=== PATIENT | female | born 1985 | race Two or more races ===

== ENCOUNTER 2024-08-17 06:10 | Emergency (ER) | payer BC, SELFPAY ==
[2024-08-17 06:12] VITALS: BP 132/63
--- NOTE | 2024-08-17 06:44 | ED.GENMED ---
History of Present Illness
General
Chief Complaint: Musculo-Skeletal Complaint
Source: patient
Exam Limitations: none
Time Seen by Provider: 08/17/24 06:32
Nursing documentation reviewed up to this point in time: agreed with
History of Present Illness
History of Present Illness:
39-year-old female presents to the ER complaining of left-sided upper back/neck discomfort radiating to her left shoulder with movement. 2 nights ago she noticed this while sleeping and woke up yesterday morning with discomfort. Pain is in the
left posterior upper trapezius region which feels worse when she moves her neck or lifts her arm up.
She denies any trauma. She does however states she does a lot of time sitting in front of the computer with work and also has a 3-year-old daughter which she lifts a lot. Denies any numbness , tingling, weakness upper extremities. Denies any
recent fever chills chest pain shortness of breath. She has been taking Tylenol but nothing else. LMP 07/30
Review of Systems
Review of Systems
Allergies reviewed?: Yes
All Other Systems: ROS reviewed and negative except as documented in HPI and ROS
Constitutional: Reports no symptoms
Respiratory: Reports no symptoms
Cardiac: Reports no symptoms
ABD/GI: Reports no symptoms
Musculoskeletal: Reports neck pain and back pain (left upper back/left sided neck discomfort )
Skin: Reports no symptoms
Neurological: Reports no symptoms; Denies numbness
Psychiatric: Reports no symptoms
Phy Exam
General Physical Exam
General Presentation: no apparent distress
General age: appears stated age
General Skin: warm and dry
General Habitus: normal
General Mental: alert
General Hydration: appears well hydrated
Cardiovascular Exam
Cardiovascular Exam: regular rate/rhythm, no murmur and normal peripheral pulses
Pulmonary Exam
Pulmonary Exam: lungs clear and no respiratory distress
Neurological Exam
Neurological Exam: alert, oriented x3, no motor deficits, no sensory deficits and other (Normal sensation to the left upper extremity with normal trans router)
Musculoskeletal Exam
Musculoskeletal Exam: other (normal inspection to left back and neck tender to left upper trapezius and left para cervical muscle region, normal range of motion to left arm however+ discomfort left upper trapezius with full range of motion to the
left arm; strong distal pulses)
Skin Exam
Skin Exam: normal color and warm/dry
Psychiatric Exam
Psychiatric Exam: normal mood/affect
Course
Vital Signs
Initial and Last Documented VS:
Initial Vital Signs
Temp Pulse Resp BP Pulse Ox
97.6 F 76 18 132/63 100
08/17/24 06:12 08/17/24 06:12 08/17/24 06:12 08/17/24 06:12 08/17/24 06:12
Last Documented Vital Signs
Temp Pulse Resp BP Pulse Ox
97.6 F 76 18 132/63 100
08/17/24 06:12 08/17/24 06:12 08/17/24 06:12 08/17/24 06:12 08/17/24 06:12
MDM/Problems Addressed
Differential Diagnosis Includes:
Not limited to muscle pain muscle strain
MDM/Problems Addressed:
Symptoms are consistent with muscular pain. Patient is in no acute distress no neurological deficits. Symptoms are worse with movement tender to left upper trapezius. She has only taken Tylenol. Will DC with ibuprofen muscle relaxer lidocaine
patch or close outpatient follow-up family doctor. Discussed ice heat and avoid lifting she will not work today to give herself a break off the computer. Discussed to return if any worsening of symptoms.
*Critical Care Note
Total Time (30-74mins, 75-104mins- exclusive of procedures): Not Applicable
ED Attending Note
-
Portions of this chart may have been created with voice recognition software.� Occasional wrong word or��sound alike� substitutions may have occurred due to the inherent limitations of voice recognition software.
Discharge Plan
Departure
Patient Disposition: Home (Routine Discharge)
Date of Disposition: 08/17/24
Time of Disposition: 06:55
Patient with high blood pressure during this ER visit?: Yes
Condition: Fair
Covid-19: Not Applicable
Discharge Problem:
Muscle pain
Instructions: Muscle and Bone Pain (DC), Ibuprofen, BLOOD PRESSURE
Prescriptions:
New
cyclobenzaprine 10 mg tablet
10 mg PO Q8H PRN (Reason: muscle spasm) Qty: 10 0RF
lidocaine 5 % adhesive patch,medicated
1 patch topical DAILY PRN (Reason: pain) Qty: 15 0RF
Rx Instructions:
remove after 12 hrs
Activity Restrictions/Additional Instructions:
As discussed apply warm moist heat to affected area several times a day for 20 minutes at a time for the next 24 to 48 hours. Ibuprofen 400 to 600 mg every 8 hours with food
In in addition you may take Tylenol as well every 6 hours.
A prescription for Flexeril (muscle relaxer) was sent to pharmacy take as directed. This medication may cause drowsiness no driving or drinking alcohol taking medicine.
In addition a prescription for lidocaine patches was sent to your pharmacy as well use as directed. Follow-up with family doctor in the next several days return if any worsening of symptoms.
Avoid lifting, avoid sitting at the computer for prolonged periods at a time.
Interventions
Interventions:
*Risk Screen - Suicide Last Done: 08/17/24 06:12
Discharge Date and Time
Print Language: SPANISH
[2024-08-17] MEDS: MOTRIN 600 MG PO (07:00)
[2024-08-17] MEDS: VALIUM INJECTION 5 MG IM (07:01)
[2024-08-17] MEDS: LIDOCAINE 4% PATCH 1 PATCH TOPICAL (07:01)
== END 2024-08-17 07:21 | disposition home or self-care (01) ==
LOC: EMR 06:10
PROVIDERS: EMERGENCY PHYSICIAN Emergency Medicine; FAMILY PHYSICIAN Physician Assistant
DX: M79.18 Myalgia, other site (principal)
CPT/HCPCS: 96372; 99284

== ENCOUNTER 2024-08-20 18:14 | Inpatient (IN) | payer BC, SELFPAY ==
[2024-08-20 11:58] VITALS: BP 126/83
--- NOTE | 2024-08-20 15:17 | ED.GENMED ---
History of Present Illness
General
Chief Complaint: Musculo-Skeletal Complaint
Source: patient
Exam Limitations: none
Time Seen by Provider: 08/20/24 14:56
History of Present Illness
History of Present Illness:
39yo right hand dominant female with a history of ALYSIA on CPAP presenting for evaluation of neck discomfort. Symptoms initially began 5 days ago. She reports feeling a twinge in the left side of her neck in the middle of the night and woke up the
following day with pain. She denies any trauma or inciting incident. The pain was worsening over a few days and she was seen in the ED 3 days ago. She was diagnosed with a muscle strain and was given a prescription for Flexeril and lidocaine
patches. She continued to have discomfort so was seen by her PCP yesterday and was given a prescription for prednisone and oxycodone. The pain has gotten better after starting these medications. She is now having weakness of her left arm and is
having issues today particularly with left shoulder abduction. She denies any paresthesias.
Phy Exam
General Physical Exam
General Presentation: well appearing and no apparent distress
General Skin: warm and dry
General Habitus: normal
General Mental: alert
ENT Exam
ENT Exam: normocephalic
Pulmonary Exam
Pulmonary Exam: no respiratory distress
Neurological Exam
Neurological Exam: alert and other (Weakness noted with L shoulder abduction. Patient uses her R arm to lift the arm and is able to hold against gravity for a few seconds. Elbow and wrist flexion normal. 2+ radial pulse and sensation intact.)
[place] Coma Scale
Eye Opening: Spontaneous
Verbal Response: Oriented
Motor Response: Obeys Commands
GCS Total Score: 15
Musculoskeletal Exam
Musculoskeletal Exam: other (No tenderness to palpation of the L shoulder)
Skin Exam
Skin Exam: normal color and warm/dry
Psychiatric Exam
Psychiatric Exam: normal mood/affect
Course
Orders/Labs/Results
Orders:
Orders
08/20/24 Breakfast
Regular
At Your Request: Full Participation
08/20/24 15:16
CT Cervical Spine W/o Iv Contr Urgent
Comment:
Reason For Exam: L neck pain, L arm weakness
CR Humerus - Left Min 2 Views* Urgent
Comment:
Reason For Exam: pain
CR Shoulder - Left Min 2 View* Urgent
Comment:
Reason For Exam: pain
08/20/24 17:02
Dexamethasone Sod Phosphate [Decadron] 10 mg IV NOW STA
Test Result ONCE
08/20/24 17:33
Admit/Transfer Patient As Directed
Co-Sign Provider:
Level of Care: Inpatient admission
Assign to:: Medical/Surgical
Physician / Group: [email or web address]
Diagnosis: left disc protrustion
Reason for Hospitalization: left disc protrusion
Expected length of stay greater than two midnights?: Yes
ELOS- Estimated Length of Stay in days: 3
I certify the patient meets the requirements for IP care: Yes
PRN Pain Medication Management As Directed
May give lesser potent ordered pain med per pt: Yes
preference::
Protocol:: Medication orders for pain may be administered in a
manner that supports deferring to patient preference
when the pt is:
- Requesting an ordered lesser potent pain medication.
Least to most potent pain medications are defined
as: acetaminophen < NSAID < tramadol < opioids
(morphine, oxycodone, hydromorphone).
- Requesting a lesser dose of the same medication IF
ORDERED.
- Requesting a less intrusive route of administration
if both routes are prescribed by the provider (PO <
IV).
08/20/24 17:34
Code Status As Directed
Resuscitation Status: Full Code
08/20/24 17:41
Complete Blood Count/With Diff Urgent
Comprehensive Metabolic Panel Urgent
HCG, Serum Qualitative Screen Urgent
08/20/24 19:38
Acetaminophen [Tylenol] 650 mg PO Q4HPRN PRN
Bisacodyl [Dulcolax] 10 mg RECTAL C98HVDC PRN
Docusate W/Senna [Senokot-S] 1 tablet PO BIDPRN PRN
Enoxaparin Sodium [Lovenox] 40 mg SC QPM
Oxycodone/Acetaminophen [Percocet 5/325] 1 tablet PO Q4HPRN PRN SEVERE PAIN
Polyethylene Glycol Powder [Miralax] 17 grams PO DAILYPRN PRN
08/20/24 19:38
Neurosurgery Consult Routine
Consulting Provider: Mey Rodríguez
Was physician already notified: Yes
Activity As Directed
Activity Level: As Tolerated
Vital Signs As Directed
Frequency: Per unit guidelines
Cpap [RESP] Routine
Patient to use own unit?: Yes
DX Deep Vein Thrombosis Video Routine
08/21/24 06:00
Dexamethasone Sod Phosphate [Decadron] 4 mg IV Q12H
Abnormal Lab Results
08/20/24
17:41
WBC 15.4 H 10^3/uL
(4.8-10.8)
Abs Immat Gran (auto) 0.1 H 10^3/uL
(0-0.05)
Absolute Neuts (auto) 13.3 H 10^3/uL
(1.4-6.5)
Neutrophils % 86.4 H %
(42.2-75.2)
Lymphocytes % 10.5 L %
(20.5-51.1)
Glucose 140 H mg/dl
(70-99)
08/20/24 17:41
08/20/24 17:41
Vital Signs
Initial and Last Documented VS:
Initial Vital Signs
Temp Pulse Resp BP Pulse Ox
97.7 F 100 16 126/83 99
08/20/24 11:58 08/20/24 11:58 08/20/24 11:58 08/20/24 11:58 08/20/24 11:58
Last Documented Vital Signs
Temp Pulse Resp BP Pulse Ox
97.7 F 83 18 104/65 99
08/20/24 11:58 08/20/24 19:57 08/20/24 19:57 08/20/24 19:57 08/20/24 19:57
MDM/Problems Addressed
Differential Diagnosis Includes:
39yoF here with L arm weakness. Started with L neck/shoulder pain x 4-5 days. Seen in ED 3 days ago and diagnosed with a muscle strain. Started with L arm weakness today. VSS. She is well appearing in no distress. Weakness with shoulder abduction
noted on exam. No sensory deficit appreciated and 2+ radial pulse in L arm. Differential diagnosis includes but is not limited to: herniated disc/radiculopathy, calcific tendonitis, muscle strain, doubt fracture
Initial ED plan: Check CT cervical spine and L shoulder/humerus x-rays.
*Critical Care Note
Total Time (30-74mins, 75-104mins- exclusive of procedures): Not Applicable
Update Note
Update Note:
Shoulder and humerus x-rays are normal. CT shows a large left posterior disc protrusion at C4-C5 with suspected impingement upon the C5 nerve root. Case discussed with neurosurgeon on-call who recommended MRI cervical spine and IV Decadron.
Patient may need surgery depending on MRI results. Patient admitted for further management.
ED Attending Note
-
Portions of this chart may have been created with voice recognition software.� Occasional wrong word or��sound alike� substitutions may have occurred due to the inherent limitations of voice recognition software.
Discharge Plan
Departure
Patient Disposition: Admit
Date of Disposition: 08/20/24
Time of Disposition: 17:14
Presentation/result/management discussed w/ accepting MD/DO: Hospitalist
Discharge Problem:
Cervical disc herniation, Left arm weakness
Interventions
Interventions:
*Risk Screen - Suicide Last Done: 08/20/24 11:58
*Neglect/Abuse Screening Last Done: 08/20/24 11:58
*ED COVID-19 Vaccine History Last Done: 08/20/24 20:09
*Nursing Disposition Last Done: 08/20/24 19:45
ED-Musculoskeletal Assessment Last Done: 08/20/24 16:00
Discharge Date and Time
Discharge Date/Time: 08/20/24 20:28
--- NOTE | 2024-08-20 17:19 | HPS.HSE ---
Family Physician
-
Family Physician: INTERVIEWE UNKNOWN - PT NOT
Chief Complaint
-
neck discomfort and left arm weakness.
History of Present Illness
39yo right hand dominant female with a history of ALYSIA on CPAP presenting for evaluation of neck discomfort.patient woke up with neck pain on Friday night. Friday she started having left arm pain. she started taking prednisone since yesterday.
pain is better but she was not able to abduct or lift her left arm today. she was seen in the ED 3 days ago. She was diagnosed with a muscle strain and was given a prescription for Flexeril and lidocaine patches. She denies any paresthesias.
denied any trauma. denied PAULSON, dizzy or syncope.denied fever, chills, chest pain, sob. denied abdominal pain,n,v,d. denied dysuria or hematuria.
CT with admission Large left posterior disc protrusion at C4-C5 with suspected impingement upon the C5 nerve root within the limitations of CT.
Patient is needed also Decadron in the ER. Admitting for further management
Medical History
Past Medical History
Past Medical History: Reports None
Additional Past Medical History:
Sleep apnea
Past Surgical History: Reports Other
Additional Past Surgical History:
Hysterectomy
Social History
Tobacco: Non-smoker
Alcohol: Occasional
Drug: None
Personal:
Living: With Family
Family History
Family History: Not pertinent
Allergies / Home Medications
Allergies reflects when Allergies were last updated in [facility].
Home Medications with original date entered in [facility]
Allergy/Medication List:
Allergies
Allergy/AdvReac Type Severity Reaction Status Date / Time
No Known Allergies Allergy Verified 08/20/24 11:57
Home Medications
ibuprofen 200 mg tablet (Advil) 400 mg PO Q8HPRN PRN MILD PAIN 08/20/24
oxycodone-acetaminophen 5 mg-325 mg tablet 1 tab PO Q4HPRN PRN SEVERE PAIN 08/20/24
prednisone 10 mg tablet 10 mg PO DIRECTED 08/20/24
Review of Systems
-
Constitutional: Reports No Symptoms
EENT: Reports No Symptoms
Respiratory: Reports No Symptoms
Cardiac: Reports No Symptoms
Abdomen/GI: Reports No Symptoms
: Reports No Symptoms
Musculoskeletal: Reports Other (Left side of the neck and shoulder pain)
Skin: Reports No Symptoms
Neurological: Reports No Symptoms
Endocrine: Reports No Symptoms
Hematologic/Lymphatic: Reports No Symptoms
Psych: Reports No Symptoms
Physical Exam
Vital Signs
Vital Signs
Temp Pulse Resp BP Pulse Ox
97.7 F 100 16 126/83 99
08/20/24 11:58 08/20/24 11:58 08/20/24 11:58 08/20/24 11:58 08/20/24 11:58
Physical Exam
General: Well Developed, Well Nourished and No Apparent Distress
HEENT: NormoCephalic, Moist mucous membranes and Atraumatic
Respiratory: Clear
Cardiac: S1/S2 and Regular Rhythm; No Murmur or Rub
GI: Soft, Non Tender, Non Distended and Normal Bowel Sounds; No Organomegaly
Rectal: Deferred by Provider
Musculoskeletal: No Clubbing, No Cyanosis and No Edema
Skin: No Rash
Neuro: AO x 3 and Nonfocal/grossly intact
Psych: Calm
Data Reviewed
-
Diagnostic Radiology: Discussed with Physician
CT Scan: Report Reviewed by me
Lab Data: Labs Reviewed by me
Impression/Plan
-
# Left-sided neck pain associated with weakness with shoulder abduction secondary to large L disc protrusion at C4-C5 with suspected impingement upon C5 nerve root
- Will obtain MRI
- IV Decadron
- Neurosurgery consulted
- Shoulder x-ray with Normal radiographs of the left shoulder and the left humerus.
- Humerus x-ray with impression of normal
- Cervical spine spine CT with impression of Large left posterior disc protrusion at C4-C5 with suspected impingement upon the C5 nerve root within the limitations of CT.
#Obstructive sleep apnea
- CPAP
# DVT prophylaxis
- Lovenox
# CODE STATUS
- Full code
[2024-08-20 17:59] LABS: % Basophils 0.1 % (0-2); % Immature Granulocytes 0.5 % (0-0.5); % Lymphocytes 10.5 % (20.5-51.1); % Monocytes 2.5 % (1.7-9.3); % Neutrophils 86.4 % (42.2-75.2); Absolute Immature Granulocytes 0.1 10^3/uL (0-0.05); Absolute Lymphocytes 1.6 10^3/uL (1.2-3.4); Absolute Monocytes 0.4 10^3/uL (0.1-0.6); Absolute Neutrophils 13.3 10^3/uL (1.4-6.5); Hemoglobin 12.5 g/dL (12.0-16.0); Mean Corp Hgb Conc. 33.8 g/dL (33.0-37.0); Mean Corpuscular Hgb 27.6 pg (27.0-31.0); Mean Corpuscular Volume 81.7 fL (81.0-99.0); Mean Platelet Volume 9.3 fL (7.4-10.4); Nucleated Red Blood Cells % 0 %; Platelet Count 332 10^3/uL (130-400); Red Blood Cell Count 4.53 10^6/uL (4.20-5.40); Red Cell Dist. Width 12.2 % (11.5-14.5); White Blood Cell Count 15.4 10^3/uL (4.8-10.8)
[2024-08-20] MEDS: DECADRON 10 MG IV (18:03)
[2024-08-20 18:08] LABS: HCG, Serum Qualitative Screen Negative
[2024-08-20 18:12] LABS: ALT (SGPT) 15 U/L (0-35); AST (SGOT) 16 U/L (14-36); Albumin 4.7 g/dl (3.5-5.0); Alkaline Phosphatase 47 U/L (38-126); Blood Urea Nitrogen 17 mg/dl (7-17); Calcium 10.1 mg/dl (8.4-10.2); Carbon Dioxide 26 mmol/L (22-30); Chloride 107 mmol/L (98-107); Glucose 140 mg/dl (70-99); Potassium 4.4 mmol/L (3.5-5.1); Sodium 141 mmol/L (135-145); Total Bilirubin 0.2 mg/dl (0.2-1.3); Total Protein 8.2 g/dl (6.3-8.2); eGFR > 60.00
--- NOTE | 2024-08-20 18:29 | W.PN.UPDATE ---
Update Note
Progress Note Update
This note serves as an addendum to the H&P by slide maker WILLIE Valarie MATSON
HPI
39F No prior DH Visit , right hand dominant F history of ALYSIA on CPAP seen at ER:
- for evaluation of neck discomfort
- woke up with neck pain on Friday night.
- Friday she started having left arm pain.
- Prednisone since yesterday. pain is better but she was not able to abduct or lift her left arm today.
- seen in the ED 3 days ago: diagnosed with a muscle strain and gave prescription for Flexeril and lidocaine patches. - - denies any paresthesias.
- denied any trauma.
- denied PAULSON, dizzy or syncope
- denied dysuria or hematuria.
CT with admission Large left posterior disc protrusion at C4-C5 with suspected impingement upon the C5 nerve root within the limitations of CT.
- given IV Decadron in the ER.
Reviewed VS:
Vital Signs
Temp Pulse Resp BP Pulse Ox
97.7 F 100 16 126/83 99
08/20/24 11:58 08/20/24 11:58 08/20/24 11:58 08/20/24 11:58 08/20/24 11:58
PE
Gen: NAD
HEENT: atraumatic head
Neck: supple
Lungs: CTA
Cor: RRR S1 S2
Abdomen: Soft, Non Tender, Non Distended and Normal Bowel Sounds;
TOP TAPER MACHINE: AAO3
MS: weak Lt abductors of shoulder
Psych: Calm
Laboratory Tests
08/20/24
17:41
WBC 15.4 H
Creatinine 0.6
eGFR > 60.00
Shoulder and Humerus XR
- Normal radiographs of the left shoulder and the left humerus.
08/20/24 CT Cervical Spine W/o Iv Contrast
- Large left posterior disc protrusion at C4-C5 with suspected impingement upon the C5 nerve root within the limitations of CT.
NO PRIOR hospitalist admission:
ASSESSMENT & PLAN
Left-sided neck pain associated with weakness of Lt shoulder abduction due to impingement upon Lt C5 nerve root
- Associated with large L disc protrusion at C4-C5 with suspected impingement upon C5 nerve root
- Unremarkable Shoulder x-ray with Normal radiographs of the left shoulder and the left humerus.
- to obtain MRI
- IV Decadron
- Cont MOTOR TEACHER Percocet 1 tab q4h PRN
- Neurosurgery consulted
ALYSIA
- CPAP HS
DVT Px: LMWH
Full code
IP MS
[2024-08-20 19:57] VITALS: BP 104/65
[2024-08-20 20:00] VITALS: BP 117/77
--- NOTE | 2024-08-20 20:00 | PTCARENOTE ---
Patient arrived to 326 from ED via stretcher, ambulated from stretcher to bed independently without difficulty. Patient is still c/o neck pain, unchanged from admission, and left arm/hand numbness with difficulty lifting LUE. Patient is alert and
oriented, PRN pain medication available - patient denying at this time. Hx sleep apnea, respiratory therapist in room during admission to confirm -- patient will have bring her home machine for use while admitted. MRI ordered. Call hua in
reach, patient verbalizes understanding on use. Will monitor.
[2024-08-20 20:10] VITALS: BMI 27.6
[2024-08-20 23:00] VITALS: BP 127/76
[2024-08-21] MEDS: DECADRON 4 MG IV ×4 (06:05→23:49)
[2024-08-21 08:12] VITALS: BP 109/66
[2024-08-21] MEDS: LIDOCAINE 4% PATCH TOPICAL (09:56)
[2024-08-21] MEDS: PEPCID 20 MG PO ×2 (10:01→19:43)
--- NOTE | 2024-08-21 13:25 | W.PN.HOSP.TC ---
Today's Communication/Plan
-
Continue steroids
Ibuprofen and oxycodone as needed for pain control
Lidocaine patch
Physical therapy
Await neurosurgical input to see if surgical management would be required
Assessment / Plan
Assessment / Plan
Neck and left arm discomfort
MRI-C4-C5 large left posterior disc protrusion causing mild spinal canal stenosis with flattening of the left ventral aspect of the cervical spinal cord and severe left neuroforaminal stenosis impinging C5 nerve root
On examination patient is awake alert oriented
Pain in the cervical spine area
Weakness of the left arm not able to lift about shoulder level. Deltoid area weakness noted in the upper arm, full strength lower arm
Bilateral lower extremity normal strength
Cardiovascular system S1-S2 appreciated
Chest clear to auscultation
# Neck pain and arm pain
CT E-evoyr-vwrhe disc protrusion C4-C5 with suspected impingement on C5 nerve root, confirmed by CT
Continue IV Decadron
Pain control, lidocaine patch, oxycodone, Tylenol, Ibuprofen
Neurosurgery consultation requested to see if surgical management is needed.
# Leukocytosis likely secondary to steroids patient took it as outpatient
# Hyperglycemia likely secondary to steroids
# Sleep apnea-continue CPAP
# DVT prophylaxis-Lovenox
# Full code
Part of this note was created using voice recognition system. Occasional wrong word or��sound alike� substitutions may have inadvertently occurred due to the inherent limitations of voice recognition software. If noted kindly bring it to my
attention for correction.
Anticipated Discharge: Within 24 hours
Subjective/Interval History
-
Date of Service: August 21, 2024
Objective Data
-
Vital Signs:
Vital Signs
Temp Pulse Resp BP Pulse Ox
98.5 F 86 22 109/66 100
08/21/24 08:12 08/21/24 08:12 08/21/24 08:12 08/21/24 08:12 08/21/24 08:12
I&O
08/20/24 08/21/24 08/22/24
06:59 06:59 06:59
Intake Total
Balance
--- NOTE | 2024-08-21 14:45 | CON.NS ---
Addendum entered and electronically signed by Mey Rodríguez MD 08/22/24 15:26:
correction:
C4-5 Disc herniation.
Original Note:
Consultation
-
Date/Time Consultation Performed: 08/21/2024; 14:45
Performing Provider: Anne
Chief Complaint
History of Present Illness
This is a neurosurgical consultation on a 39-year-old female who presented with left arm weakness yesterday. She has active medical issues including obstructive sleep apnea, who presented with approximate 1 week history of neck pain. 3 days
thereafter, she started experiencing left upper extremity radicular pain. She started steroids, and reported that the pain was better, but had weakness of her left shoulder. She was seen in the ER 4 days prior, diagnosed with muscle strain. She
had a CT performed to the emergency room which revealed left L4-5 disc herniation. She subsequently underwent MRI scan. She was admitted for workup, pain control.
Patient seen and examined. Nurses at bedside. She reports that her pain is significantly improved, but she continues to have left shoulder. She denies any lower extremity. She denies any bowel bladder changes.
Review of Systems
-
10 point review of systems including constitutional, ENT, cardiovascular, respiratory, GI, , neurologic, musculoskeletal, endocrinologic, hematologic was performed, was negative except for as stated in HPI.
Medication and Allergies
Home Medications
Home Medications
�Medication �Instructions �Recorded
ibuprofen 200 mg tablet (Advil) 400 mg PO Q8HPRN PRN MILD PAIN 08/20/24
oxycodone-acetaminophen 5 mg-325 1 tab PO Q4HPRN PRN SEVERE PAIN 08/20/24
mg tablet
prednisone 10 mg tablet 10 mg PO DIRECTED 08/20/24
Allergies
Allergies
Allergy/AdvReac Type Severity Reaction Status Date / Time
No Known Allergies Allergy Verified 08/20/24 11:57
Physical Exam
-
Exam:
Awake, alert, no apparent distress. Family is at bedside.
Cranial nerves II through XII are grossly intact.
Motor: 5/5 strength in bilateral lower extremities. 5/5 strength in right upper extremity. 3/5 strength in left deltoid.
Sensation light touch is intact bilaterally in upper and lower extremities.
MRI of the cervical spine performed on 08/21/2024 was reviewed. Images were personally viewed and interpreted by me. There is a left-sided paracentral disc herniation causing impingement of the left L4-5 neuroforamen. No evidence of cord signal
changes seen. There is mild posterior displacement of the thecal sac on the left at this level.
Problems
-
Problem Status Onset Code
Left arm weakness Acute R29.898
Cervical disc herniation Acute M50.20
Assessment / Plan
-
Is a 39-year-old female who presents with C4-C5 disc herniation with left upper extremity radiculopathy.
Imaging demonstrates left C4-C5 neural impingement disc herniation. I discussed with the patient, and her family management options which include nonsurgical treatment via high-dose steroids, pain control physical therapy, possible epidural steroid
injection as outpatient versus surgical intervention by means of C4-5 ACDF.
Patient thinking over options, but is more interested in proceeding with likely nonoperative options at least short-term.
If so, I advised that she follow-up in the office with me approximately 2 to 3 weeks. Should her symptoms change or worsen, she is advised to follow-up with me sooner.
If the patient ultimately ends up getting discharged, okay to discharge on Medrol Dosepak, muscle relaxants.
[2024-08-21 16:01] VITALS: BP 115/65
--- NOTE | 2024-08-21 16:28 | PTCARENOTE ---
patient reports pain is tolerable today. refused Lidocaine patch, tolerating diet, ambulating independently frequently in room and hallway, vss, will continue to monitor.
[2024-08-21 23:34] VITALS: BP 108/66
[2024-08-22] MEDS: DECADRON 4 MG IV ×2 (06:05→12:59)
[2024-08-22] MEDS: PEPCID 20 MG PO (07:29)
[2024-08-22] MEDS: LIDOCAINE 4% PATCH 1 PATCH TOPICAL (07:29)
[2024-08-22 08:13] VITALS: BP 106/73
--- NOTE | 2024-08-22 12:31 | CM ---
Reviewed the chart notes and spoke with the patient and spouse at the bedside. The patient resides with her spouse and daughter in a split level home with six steps to enter. The patient reports on DME is a CPAP machine. No VN or SNF in the
past. [facility] [address] [facility]. CM continues to be available to patient/family and is monitoring medical plan for needs at discharge.
Plan: Discharge to home when medically stable. Spouse will provide transportation home.
--- NOTE | 2024-08-22 13:26 | W.PN.HOSP.TC ---
Addendum entered and electronically signed by Ruel Henson MD 08/22/24 14:50:
OT still has not seen pt.
She wants to go home
Script for Op PT OT given.
Dictation- [id number]
Original Note:
Today's Communication/Plan
-
Discharge
Assessment / Plan
Assessment / Plan
Neck and left arm discomfort
MRI-C4-C5 large left posterior disc protrusion causing mild spinal canal stenosis with flattening of the left ventral aspect of the cervical spinal cord and severe left neuroforaminal stenosis impinging C5 nerve root
On examination patient is awake alert oriented
Pain in the cervical spine area
Weakness of the left arm , but able to lift about shoulder level. Abduction is affected deltoid area weakness noted in the upper arm, full strength lower arm
Bilateral lower extremity normal strength
Cardiovascular system S1-S2 appreciated
Chest clear to auscultation
Pain is better during the daytime. She did not take anything prior to going to sleep at night and had pain sleeping mostly.
She also admits that her symptoms are better than Friday for sure
# Neck pain and arm pain
CT [id number] disc protrusion C4-C5 with suspected impingement on C5 nerve root, confirmed by CT
Continue IV Decadron
Pain control, lidocaine patch, oxycodone, Tylenol, Ibuprofen
Neurosurgery consultation appreciated. Conservative measures and patient can always see neurosurgery for surgical interventions
# Leukocytosis likely secondary to steroids patient took it as outpatient
# Hyperglycemia likely secondary to steroids
# Sleep apnea-continue CPAP
# DVT prophylaxis-Lovenox
# Full code
Discussed with nursing
Detailed discussion with the patient and at bedside they had a lot of questions all were answered to the best of my ability.
She has not been taking any medicines for pain and trying to avoid that. Discussed about muscle spasm causing more pain as she is trying to guard her neck. Muscle relaxant added. Note for work given as she requested difficulty with typing. Note
for PT OT given
Discussed with neurosurgery.
22 minutes in patient's room today. plus discharge
More than 30 minutes spent in discharge including
Final examination of the patient
Summarizing hospital stay
Instructions for continuing care to all relevant caregivers
Preparation of discharge records, prescriptions, and referral forms
Total time spent (in minutes): 39 minutes
Part of this note was created using voice recognition system. Occasional wrong word or��sound alike� substitutions may have inadvertently occurred due to the inherent limitations of voice recognition software. If noted kindly bring it to my
attention for correction.
Anticipated Discharge: Today
Subjective/Interval History
-
Date of Service: August 22, 2024
Objective Data
-
Vital Signs:
Vital Signs
Temp Pulse Resp BP Pulse Ox
97.6 F 83 22 106/73 99
08/22/24 08:13 08/22/24 08:13 08/22/24 08:13 08/22/24 08:13 08/22/24 08:13
I&O
08/21/24 08/22/24 08/23/24
06:59 06:59 06:59
Intake Total 840 / 840
Balance 840 / 840
--- NOTE | 2024-08-22 14:47 | W.DS.TRANS ---
DC Summary - Rn Radiation
-
Discharge Instructions:
Discharge Diagnosis/Procedures Cervical radiculopathy
C4-5 disc herniation with neural impingement
Sleep apnea
Diet As tolerated
Activity With assistance,No strenuous activity
Driving Restrictions Do not drive when you take Flexeril or oxycodone
Blood Work BMP in 1 week
Instructions:
Stand-Alone Forms:
Changes to Home Medications: Yes
Discharge Medications:
DC Medications w/original date entered in [employer]
ibuprofen 200 mg tablet (Advil) 400 mg PO Q8HPRN PRN MILD PAIN 08/20/24
oxycodone-acetaminophen 5 mg-325 mg tablet 1 tab PO Q4HPRN PRN SEVERE PAIN 08/20/24
acetaminophen 325 mg tablet 650 mg (2 x 325 mg) PO Q4HPRN PRN mild pain #0 tabs 08/22/24
cyclobenzaprine 10 mg tablet 5 mg (1/2 x 10 mg) PO Q8HPRN PRN pain/spasm #15 tabs 08/22/24
famotidine 20 mg tablet 20 mg PO BID Gastrointestinal issue #40 tabs 08/22/24
lidocaine 4 % topical patch 1 patch topical DAILY neck #0 ea 08/22/24
polyethylene glycol 3350 17 gram oral powder packet 17 g PO DAILYPRN PRN constipation #0 ea 08/22/24
prednisone 10 mg tablet See Rx Instructions .Route .COMPLEX Pain #20 tabs 08/22/24
Home Medication Changes
new
acetaminophen 325 mg tablet 650 mg (2 x 325 mg) PO Q4HPRN PRN mild pain #0 tabs 08/22/24
cyclobenzaprine 10 mg tablet 5 mg (1/2 x 10 mg) PO Q8HPRN PRN pain/spasm #15 tabs 08/22/24
famotidine 20 mg tablet 20 mg PO BID Gastrointestinal issue #40 tabs 08/22/24
lidocaine 4 % topical patch 1 patch topical DAILY neck #0 ea 08/22/24
polyethylene glycol 3350 17 gram oral powder packet 17 g PO DAILYPRN PRN constipation #0 ea 08/22/24
prednisone 10 mg tablet See Rx Instructions .Route .COMPLEX Pain #20 tabs 08/22/24
Pending Results: No
[2024-08-22 15:18] VITALS: BP 114/77
== END 2024-08-22 15:30 | disposition home or self-care (01) | DRG 552 ==
LOC: 3 WEST ACU 18:14
PROVIDERS: Physician Assistant; ADMITTING PHYSICIAN Internal Medicine; ATTENDING PHYSICIAN Hospitalist; CONSULT PHYSICIAN Neurological Surgery; EMERGENCY PHYSICIAN Emergency Medicine
DX: M50.121 Cervical disc disorder at C4-C5 level with radiculopathy (principal); M50.221 Other cervical disc displacement at C4-C5 level; G47.33 Obstructive sleep apnea (adult) (pediatric); M48.02 Spinal stenosis, cervical region; R73.9 Hyperglycemia, unspecified; D72.828 Other elevated white blood cell count; Z90.710 Acquired absence of both cervix and uterus
CPT/HCPCS: 72125; 72156; 73030; 73060; 80053; 84703; 85025; 96374; 97162; 97530; 99285

== ENCOUNTER 2024-09-13 16:17 | Outpatient (RCR) | payer BC, SELFPAY | END 2024-09-13 23:59 | disposition home or self-care (01) | LOC: RPT 16:17 | PROVIDERS: ATTENDING PHYSICIAN Physician Assistant | DX: M50.121 Cervical disc disorder at C4-C5 level with radiculopathy (principal); M62.81 Muscle weakness (generalized); Z73.6 Limitation of activities due to disability | CPT/HCPCS: 97010; 97110; 97112; 97140; 97162; 97530; 97535 ==

== ENCOUNTER 2024-10-11 16:14 | Outpatient (RCR) | payer BC, SELFPAY | END 2024-10-11 23:59 | disposition home or self-care (01) | LOC: RPT 16:14 | PROVIDERS: ATTENDING PHYSICIAN Physician Assistant | DX: M50.121 Cervical disc disorder at C4-C5 level with radiculopathy (principal); M62.81 Muscle weakness (generalized); Z73.6 Limitation of activities due to disability | CPT/HCPCS: 97010; 97110; 97112; 97140 ==

== ENCOUNTER → 2025-02-22 11:24 | Outpatient (REF) | payer BC, SELFPAY | LOC: RAD 11:24 | PROVIDERS: ATTENDING PHYSICIAN Physician Assistant; FAMILY PHYSICIAN Physician Assistant Medical | DX: R22.1 Localized swelling, mass and lump, neck (principal) | CPT/HCPCS: 76536 ==

== ENCOUNTER → 2025-02-23 14:20 | Outpatient (REF) | payer BC, SELFPAY | LOC: HWRAD 14:20 | PROVIDERS: ATTENDING PHYSICIAN Physician Assistant Medical; FAMILY PHYSICIAN Physician Assistant | DX: R10.12 Left upper quadrant pain (principal); K59.00 Constipation, unspecified | CPT/HCPCS: 76700 ==